=== PATIENT | female | born 1960 | race Caucasian/White ===

== ENCOUNTER 2019-08-29 17:03 | Emergency (ER) | payer MEDICAID ==
[~2019-08-29] VITALS: Ht 154.9 cm; Wt 59.1 kg
[2019-08-29 17:09] VITALS: Ht 154.9 cm; Wt 59.1 kg
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
[2019-08-29 17:35] LABS: BASOPHILS 0.2 % (0-2); EOSINOPHILS 0.2 % (0-7); HEMATOCRIT 40.4 % (36.0-48.0); HEMOGLOBIN 14.6 g/dL (12-16); IMMATURE GRANULOCYTES 0.2 % (0-5); LYMPHOCYTES 22.6 % (15-50); MCH 33.3 pg (26.0-34.0); MCHC 36.1 g/dL (31.0-37.0); MCV 92.2 fL (80.0-100.0); MONOCYTES 7.4 % (2-11); NEUTROPHILS 69.4 % (40-80); PLATELET COUNT 244 10x3/uL (130-400); RBC 4.38 10x6/uL (4.00-5.40); RDW 12.1 % (11.5-14.5); WBC 6.7 10x3/uL (4.8-10.8)
[2019-08-29 17:48] LABS: APTT 30.5 SECONDS (22.8-39.4); INR 1.02 (0.85-1.17); PROTIME 12.9 SECONDS (11.6-15.0)
[2019-08-29 18:05] LABS: ALBUMIN 4.4 g/dL (3.4-5.0); ALKALINE PHOSPHATASE 112 U/L (46-116); ALT (SGPT) 25 U/L (10-68); BILIRUBIN - TOTAL 0.99 mg/dL (0.2-1.3); CALC OSMOLALITY 264 mosm/kg (275-300); CALCIUM 9.5 mg/dL (8.5-10.1); CARBON DIOXIDE 25.8 mmol/L (21.0-32.0); CHLORIDE - SERUM 95 mmol/L (98-107); CKMB 2.3 U/L (0.0-3.6); CREATINE KINASE 186 UL (21-215); CREATININE - SERUM 0.8 mg/dL (0.6-1.3); GLUCOSE 119 mg/dL (74-106); MAGNESIUM - SERUM 1.6 mg/dL (1.8-2.4); PROTEIN - SERUM 8.5 g/dL (6.4-8.2); SODIUM 133 mmol/L (136-145); TROPONIN-I < 0.017 ng/mL (0.000-0.060); UREA NITROGEN 6 mg/dL (7-18); eGFR NON AFRICAN AMERICAN 78 mL/min (90-120)
[2019-08-29 18:09] LABS: POTASSIUM - SERUM 2.9 mmol/L (3.5-5.1)
[2019-08-29 21:43] LABS: CKMB 1.7 U/L (0.0-3.6); CREATINE KINASE 158 UL (21-215); TROPONIN-I < 0.017 ng/mL (0.000-0.060)
[2019-08-29 23:12] VITALS: BP 101/71
== END 2019-08-29 22:58 | disposition home or self-care (01) ==
LOC: D.ER 17:03
PROVIDERS: Family Medicine
DX: F41.9 Anxiety disorder, unspecified (principal); J98.11 Atelectasis; I10 Essential (primary) hypertension; Z72.0 Tobacco use; M79.7 Fibromyalgia